=== PATIENT | male | born 1975 | race Caucasian/White ===

== ENCOUNTER 2018-07-10 08:29 | Emergency (ER) | payer OTHER, SELFPAY ==
[2018-07-10 08:36] VITALS: BP 142/99; PULSE 74; RESP 18; TEMP 36.6; O2SAT 100; BMI 35.4
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
== END 2018-07-10 09:51 | disposition home or self-care (01) ==
PROVIDERS: Emergency Provider Emergency Medicine
DX: S22.31XA Fracture of one rib, right side, initial encounter for closed fracture (principal); V28.0XXA Motorcycle driver injured in noncollision transport accident in nontraffic accident, initial encounter
CPT/HCPCS: 71101; 99282; 99283

== ENCOUNTER → 2024-12-09 19:26 | Outpatient (CLI) | payer OTHER, SELFPAY ==
--- NOTE | 2024-12-09 19:29 | DI.MRI.S_ITS ---
PROCEDURE: MR LUMBAR SPINE WO CON INDICATIONS: radiculopathy TECHNIQUE: Noncontrast sagittal T1 spin echo and T2 fast echo, sagittal STIR, and T2 fast spin echo through the lumbar spine. In cases with scoliosis, additional coronal T2 fast spin echo may be performed. COMPARISON: None. FINDINGS: Image quality: Excellent. Alignment and Curvature: There is normal bony alignment. Bone Marrow: Marrow is of normal overall signal. No acute vertebral body compression fractures. Bilateral L5 pars defects. Spinal Cord: Conus medullaris terminates at the L2 level. Visualized cord demonstrates normal signal and size. Paraspinous Soft Tissues: No paravertebral masses. T12-L1: Normal appearance. L1-L2: Mild posterior disc bulge. No spinal canal or foraminal stenosis. L2-L3: Normal appearance. L3-L4: Mild posterior disc bulge and facet hypertrophy with mild left and no right foraminal stenosis. No canal stenosis. L4-L5: Mild posterior disc bulge and facet hypertrophy with mild bilateral foraminal stenosis. No spinal canal stenosis. L5-S1: Small central disc protrusion. Moderate bilateral right greater than left foraminal stenosis. No canal stenosis. IMPRESSION: Multilevel degenerative changes notably with central disc protrusion of L5-S1, L5 pars defects and moderate foraminal stenosis. Dictated by: Isak Krause M.D. on 12/10/2024 at 8:49 Approved by: Isak Krause M.D. on 12/10/2024 at 8:57
== END ==
LOC: MRI 19:27
PROVIDERS: Referring Provider Family Medicine; Visit Provider Family Medicine
DX: M51.17 Intervertebral disc disorders with radiculopathy, lumbosacral region (principal); M48.07 Spinal stenosis, lumbosacral region; M47.27 Other spondylosis with radiculopathy, lumbosacral region; M46.1 Sacroiliitis, not elsewhere classified
CPT/HCPCS: 72148